=== PATIENT | female | born 1945 | race Caucasian/White ===

== ENCOUNTER 2017-10-28 09:15 | Day surgery (SDC) | payer MEDICARE, OTHER ==
[2017-10-28] MEDS ORDERED: Lactated Ringers 1,000 ML IV SCH (09:50)
[2017-10-28] MEDS ORDERED: Propofol 200 MG/20 ML SDV ONE (09:54)
[2017-10-28] MEDS ORDERED: fentaNYL 100 MCG/2 ML SDV ONE (09:54)
[2017-10-28] MEDS ORDERED: Midazolam 1 MG/ML 2 ML SDV ONE (09:55)
--- NOTE | 2017-10-29 08:13 | OR ---
DATE OF PROCEDURE: 10/28/2017 PREOPERATIVE DIAGNOSIS: Colon cancer screening. POSTOPERATIVE DIAGNOSIS: Diverticulosis. PROCEDURE: Colonoscopy to the cecum. ANESTHESIA: IV anesthesia with monitored anesthesia care. INDICATION: This 72-year-old white female is referred for a colonoscopy for colon cancer screening. She says her last colonoscopic exam was done 12 years ago. I counseled her for the procedure including risks and alternatives, and she gave her informed consent to proceed. DESCRIPTION OF PROCEDURE: The patient was placed in the left lateral decubitus position. IV anesthesia was administered by the Anesthesia Service. Time-out was held. A rectal exam was performed, which was unremarkable. The flexible video Olympus colonoscope was introduced through her anus, up her rectum, and out her colon, all the way to the cecum. En route, we saw multiple left-sided diverticula. There was no bleeding or inflammation associated with them. Once the cecum was reached, the scope was slowly withdrawn, examining the mucosa throughout. No additional mucosal abnormalities were noted. The scope was retroflexed in the rectum with the distal rectum appearing unremarkable. The scope was straightened and removed. She tolerated the procedure well. Rommel Curtis MD /[id number]
== END 2017-10-28 12:18 | disposition home or self-care (01) ==
LOC: JP.SDS 09:15
PROVIDERS: ATTEND Surgery
DX: Z12.11 Encounter for screening for malignant neoplasm of colon (principal); I10 Essential (primary) hypertension; K57.30 Diverticulosis of large intestine without perforation or abscess without bleeding; Z88.8 Allergy status to other drugs, medicaments and biological substances
CPT/HCPCS: J2250; J2704; J3010

== ENCOUNTER 2021-10-08 16:41 | Emergency (ER) | payer MEDICARE | END 2021-10-08 19:35 | disposition home or self-care (01) | LOC: JP.ED 16:41 | DX: M21.372 Foot drop, left foot (principal); E78.00 Pure hypercholesterolemia, unspecified; I10 Essential (primary) hypertension; M19.90 Unspecified osteoarthritis, unspecified site; Z88.8 Allergy status to other drugs, medicaments and biological substances; Z79.82 Long term (current) use of aspirin; Z79.899 Other long term (current) drug therapy | CPT/HCPCS: 72131; 99282; 99283-25 ==